=== PATIENT | male | born 1965 | race Caucasian/White ===

== ENCOUNTER 2022-02-10 23:45 | Emergency (ER) | payer OTHER ==
[2022-02-10 23:52] VITALS: BP 184/83; PULSE 89; RESP 18; TEMP 98.7
[2022-02-11] MEDS ORDERED: LORazepam 2 MG TABLET PO ONE (00:14)
[2022-02-11] MEDS ORDERED: LORazepam 0.5 MG TABLET ONE (00:21)
[2022-02-11 01:39] LABS: BASO % 0.3 % (0-2.0); EOS % 0.7 % (0-4.5); HEMATOCRIT 38.6 % (35.4-49); HEMOGLOBIN 13.7 GM/dL (11.7-16.9); LYMPH % 27.8 % (8-40); MCHC 35.5 g/dl (32.0-35.9); MEAN CELL VOLUME 84.5 fl (80-96); MEAN PLT VOLUME 7.6 fl (7.5-11.1); MONO % 7.4 % (3.8-10.2); NEUT % 63.8 % (42.8-82.8); PLATELET COUNT 223 10^3/uL (134-434); RBC 4.57 M/mm3 (4.00-5.60); RDW 12.6 % (11.9-15.9); WHITE BLOOD COUNT 7.5 K/mm3 (4.0-10.0)
[2022-02-11 02:04] LABS: CALCIUM 9.1 mg/dL (8.5-10.1)
[2022-02-11 02:05] LABS: ALBUMIN 4.3 g/dl (3.4-5.0); BLOOD UREA NITROGEN 14.5 mg/dL (7-18)
[2022-02-11 02:08] LABS: CREATININE 0.8 mg/dL (0.55-1.3)
[2022-02-11 02:10] LABS: BILIRUBIN,TOTAL 0.5 mg/dL (0.2-1); TOT PROT 7.1 g/dl (6.4-8.2)
== END 2022-02-11 02:02 | disposition left against medical advice (07) ==
LOC: FER 23:45
DX: R06.02 Shortness of breath (principal)
CPT/HCPCS: 36415; 71046-TC-FY; 80053; 82550; 84484; 85025; 93005; 99284-25